=== PATIENT | female | born 1985 | race Caucasian/White ===

== ENCOUNTER 2017-03-28 17:24 | Inpatient (IN) | payer OTHER ==
[2017-03-28] VITALS (7 sets, daily range): BP systolic 117–144; BP diastolic 63–90
[~2017-03-28] VITALS: Ht 152.4 cm; Wt 82.5 kg
[~2017-03-28 17:24] MED LIST: PRENATAL TABLE1 EAC3 PO
[2017-03-28] MEDS ORDERED: ZOFRAN4 MG PO (18:46)
[2017-03-28 19:30] LABS: EOSINOPHIL (%) 0.2 % (0-5); HEMATOCRIT 34.1 % (36.0-46.0); IMMATURE GRANULOCYTE (%) 0.3 % (0.0-0.7); INSTRUMENT ABS NEUTROPHIL CT 9.2 K/uL; LYMPHOCYTE COUNT 1.5 K/uL (1.0-2.8); MCH 25.2 PG (29.0-34.0); MCHC 31.7 G/DL (30.0-36.0); MCV 79.7 FL (83-99); MEAN PLAT.VOLUME 9.9 uM^3 (9.5-12.4); MONOCYTE (%) 6.3 % (3-12); MONOCYTE COUNT 0.7 K/uL (0-0.8); NEUTROPHIL COUNT 9.2 K/uL (1.8-6.4); PLATELET COUNT 272 K/uL (156-360); RBC DIS.WIDTH-CV 14.6 % (11.8-14.6); RBC DIS.WIDTH-SD 42.5 % (39-53); RED BLOOD COUNT 4.28 M/uL (3.80-5.20); WHITE BLOOD COUNT 11.5 K/uL (4.1-10.2)
[2017-03-29 07:49] LABS: EOSINOPHIL (%) 0.4 % (0-5); HEMATOCRIT 30.8 % (36.0-46.0); IMMATURE GRANULOCYTE (%) 0.4 % (0.0-0.7); INSTRUMENT ABS NEUTROPHIL CT 7.6 K/uL; MCH 25.8 PG (29.0-34.0); MCHC 32.1 G/DL (30.0-36.0); MCV 80.2 FL (83-99); MEAN PLAT.VOLUME 10.3 uM^3 (9.5-12.4); MONOCYTE (%) 9.5 % (3-12); NEUTROPHIL (%) 70.7 % (45-76); NEUTROPHIL COUNT 7.6 K/uL (1.8-6.4); PLATELET COUNT 254 K/uL (156-360); RBC DIS.WIDTH-CV 14.8 % (11.8-14.6); RBC DIS.WIDTH-SD 43.2 % (39-53); RED BLOOD COUNT 3.84 M/uL (3.80-5.20); WHITE BLOOD COUNT 10.8 K/uL (4.1-10.2)
[2017-03-29 07:53] VITALS: BP 110/65
[2017-03-29 16:17] VITALS: BP 109/67
[2017-03-29 23:00] VITALS: BP 111/72
[2017-03-30 07:30] VITALS: BP 107/66
[2017-03-30] MEDS ORDERED: IBUPROFEN800 MG PO (10:43)
[2017-03-30] MEDS ORDERED: FERROUS GLUCON324 MG PO (10:43)
== END 2017-03-30 14:28 | disposition home or self-care (01) | DRG 775 ==
LOC: LDRP-OP 17:24 → 2WEST 17:25 → LDRP-OP 05-08 09:45
PROVIDERS: Advanced Practice Midwife
DX: O70.0 First degree perineal laceration during delivery (principal); D62 Acute posthemorrhagic anemia; O99.210 Obesity complicating pregnancy, unspecified trimester; E66.9 Obesity, unspecified; Z68.34 Body mass index [BMI] 34.0-34.9, adult; Z37.0 Single live birth; Z3A.38 38 weeks gestation of pregnancy; O99.02 Anemia complicating childbirth
CPT/HCPCS: 85025; J2590